=== PATIENT | male | born 1990 | race Caucasian/White ===

== ENCOUNTER 2022-05-14 18:42 | Emergency (ER) | payer OTHER ==
[2022-05-14] MEDS ORDERED: IBUPROFEN600 MG PO (21:05)
[2022-05-14] MEDS ORDERED: ZOFRAN ODT 4 MG4 MG PO (21:05)
== END 2022-05-14 21:15 | disposition home or self-care (01) ==
LOC: ER1 18:42
DX: J02.9 Acute pharyngitis, unspecified (principal); Z20.822 Contact with and (suspected) exposure to COVID-19
CPT/HCPCS: 0240U; 87081; 87880; 99283